=== PATIENT | female | born 1940 | race Caucasian/White ===

== ENCOUNTER 2021-08-16 17:27 | Emergency (ER) | payer MEDICARE ==
[~2021-08-16] VITALS: Ht 157.5 cm; Wt 57.7 kg
[2021-08-16 17:44] VITALS: BP 160/60
[2021-08-16] MEDS ORDERED: acetaminophen 325mg tablet PO ONE (17:55)
== END 2021-08-16 18:47 | disposition home or self-care (01) ==
LOC: ER 17:28
DX: S00.83XA Contusion of other part of head, initial encounter (principal); S00.81XA Abrasion of other part of head, initial encounter; Z88.5 Allergy status to narcotic agent; Z88.8 Allergy status to other drugs, medicaments and biological substances; W01.0XXA Fall on same level from slipping, tripping and stumbling without subsequent striking against object, initial encounter; Y93.01 Activity, walking, marching and hiking; Y92.017 Garden or yard in single-family (private) house as the place of occurrence of the external cause; Y99.8 Other external cause status
CPT/HCPCS: 99282

== ENCOUNTER 2024-05-17 09:03 | Emergency (ER) | payer MEDICARE ==
[~2024-05-17] VITALS: Ht 167.6 cm; Wt 75.0 kg
[2024-05-17 09:11] VITALS: TEMP 98.2
[2024-05-17] MEDS: diphenhydrAMINE 50 mg/ml inj IV ONE (09:28)
[2024-05-17] MEDS: methylPREDNISolone sod succ 125mg/2ml vial IV ONE (09:29)
[2024-05-17] MEDS ORDERED: EPIN0.3P3 IM (11:14)
[2024-05-17] MEDS ORDERED: CETI10TA19 PO (11:14)
[2024-05-17] MEDS ORDERED: PRED10TA23 PO (11:14)
[2024-05-17 11:25] VITALS: BP 155/62; PULSE 19; RESP 18; O2SAT 100
== END 2024-05-17 11:27 | disposition home or self-care (01) ==
LOC: ER 09:04
DX: T63.441A Toxic effect of venom of bees, accidental (unintentional), initial encounter (principal); Z88.1 Allergy status to other antibiotic agents; Z88.8 Allergy status to other drugs, medicaments and biological substances; Z79.899 Other long term (current) drug therapy; Z79.52 Long term (current) use of systemic steroids; Y92.89 Other specified places as the place of occurrence of the external cause
CPT/HCPCS: 96374; 96375; 99285; J1200; J2919

== ENCOUNTER 2025-08-29 12:20 | Outpatient (CLI) | payer MEDICARE ==
[~2025-08-29 12:20] MED LIST: CETI10TA19 PO; EPIN0.3P3 IM
--- NOTE | 2025-08-30 05:04 | RADIOLOGY REPORT ---
PROCEDURE: MR MRI LUMBAR SPINE INDICATION: LOW BACK PAIN, UNSPECIFIED Exam Date: 08/29/2025 01:06 PM COMPARISON: None TECHNIQUE: MRI lumbar spine without intravenous contrast. FINDINGS: EXAM: MRI Lumbar Spine without contrast INDICATION: TECHNIQUE: Multiplanar, multisequence MR imaging of the lumbar spine was performed without IV contrast. FINDINGS: Lumbar lordosis is exaggerated. S-shaped scoliosis. CONUS: Conus medullaris terminates at the L1-L2 level, demonstrates normal signal. CAUDA EQUINA: Unremarkable. OSSEOUS STRUCTURES: Marginal endplate osteophytic spurring is noted at L1-L2, L2-L3, L3-L4, L4-L5 and L5-S1, more pronounced along the anterolateral contours of the vertebrae. Endplate irregularity is noted at L5-S1. ALIGNMENT: Retrolisthesis of L2 on L3 by 4.0mm and L3 on L4 by 2.5mm, lateral left listhesis of L2 on L3 by 7.8mm. BONE MARROW: Schmorl's nodes along the endplates of the L2-L5 vertebrae. Modic I changes at L3-L4. Bone marrow edema is determined in the right arch of the L5 vertebra and the right sections of the S1 vertebra. The MR signal from the structure of the remaining vertebrae is heterogeneous due to degenerative- dystrophic changes. PARASPINAL SOFT TISSUES: Edema of the subcutaneous fat is determined on the posterior surface at the level L2-L5. DISCS: Disc desiccation at T12-L1, L1-L2, L2-L3, L3-L4, L4-L5 and L5-S1. Intervertebral disc height loss at L1-L2, L2-L3, L3-L4 and L5-S1. Following levels detailed below: T12-L1: No spinal canal or neural foraminal stenosis. The facet joints are normal. L1-2: 5mm diffuse disc bulge. Mild spinal canal stenosis. Mild bilateral subarticular zone stenosis. No neural foraminal stenosis. Mild facet arthrosis. L2-3: 6mm (in total with the inferior endplate of the L2 vertebra) diffuse disc bulge. Moderate spinal canal stenosis. Moderate left and mild right subarticular zone stenosis. Mild bilateral foraminal stenosis. Mild facet arthrosis. L3-4: 9mm asymmetric left disc bulge. Moderate spinal canal stenosis. Moderate right and severe left subarticular zone stenosis with potential left descending L4 nerve root compression. Mild right and severe left foraminal stenosis with potential left exiting L3 nerve root compression. Severe facet arthrosis. L4-5: 4mm diffuse disc bulge. No spinal canal stenosis. Mild bilateral foraminal stenosis. Moderate facet arthrosis. L5-S1: Diffuse disc bulge with superimposed central disc extrusion measured 5.1mm in anteroposterior dimension. Mild right subarticular zone stenosis. Mild left and severe right foraminal stenosis with potential right exiting L5 nerve root compression. Severe facet arthrosis. A small area of bone marrow edema is detected in the subchondral regions of the right iliac bone. IMPRESSION: 1. L3-L4: severe left foraminal and subarticular zone stenosis with potential compression of the left exiting L3 and descending L4 nerve roots; asymmetric left disc bulge. 2. L5-S1: Severe right foraminal stenosis with potential compression of the right exiting L5 nerve root; central disc extrusion. 3. L1-L2, L2-L3, L4-L5: diffuse disc bulges with moderate spinal canal stenosis at L2-L3 and L3-L4. 4. Lateral left listhesis of L2 on L3 and retrolisthesis of L2 on L3, of L3 on L4. S-shaped scoliosis. Severe facet arthrosis at the level L3-L4 and L5-S1. 5. Modic I changes at L3-L4. Bone marrow edema in the right arch of the L5 vertebra and the right sections of the S1 vertebra. A small area of bone marrow edema in the subchondral regions of the right iliac bone.
== END 2025-08-29 23:59 | disposition home or self-care (01) ==
LOC: MRI 12:20
PROVIDERS: ATTEND Family Medicine Sports Medicine
DX: M51.17 Intervertebral disc disorders with radiculopathy, lumbosacral region (principal); M25.511 Pain in right shoulder; M51.46 Schmorl's nodes, lumbar region; M77.9 Enthesopathy, unspecified; M47.26 Other spondylosis with radiculopathy, lumbar region; R60.0 Localized edema; M53.3 Sacrococcygeal disorders, not elsewhere classified; M41.9 Scoliosis, unspecified; M48.07 Spinal stenosis, lumbosacral region; M54.50 Low back pain, unspecified; X58.XXXA Exposure to other specified factors, initial encounter; Y93.89 Activity, other specified; Y92.89 Other specified places as the place of occurrence of the external cause; Y99.8 Other external cause status
CPT/HCPCS: 72148